=== PATIENT | female | born 1995 | race Caucasian/White ===

== ENCOUNTER 2023-12-27 19:28 | Emergency (ER) | payer SELFPAY ==
[2023-12-27 19:34] VITALS: BP 152/86
[2023-12-27 20:48] VITALS: BMI 25.8
--- NOTE | 2023-12-27 20:48 | ED.SKININJ ---
HPI-Injury
General
Chief Complaint: Blood and Body Fluid Exposure
Source: patient
Exam Limitations: none
Time Seen by Provider: 12/27/23 20:41
History of Present Illness-Injury
Initial Injury comments:
28-year-old female presents with needlestick to the left index finger sustained today. 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 She immediately expressed blood out of
her finger. She then washed it with soapy water. She has no complaints offered.
Phy Exam
Physical Exam
Physical Exam:
General: Well-appearing female no acute respiratory distress
HEENT: Normocephalic atraumatic
Neurologic: Alert conversing appropriately
Course
Orders/Labs/Results
Orders:
Orders
12/27/23 20:47
Pt has had a significant HIV exposure? Routine
HIV Exposure is significant?: Yes
HIV Combo Urgent
Hepatitis B Surface Antibody Urgent
Hepatitis B Surface Antigen Urgent
Hepatitis C Antibody Urgent
Vital Signs
Initial and Last Documented VS:
Initial Vital Signs
Temp Pulse Resp BP Pulse Ox
98.1 F 63 20 152/86 100
12/27/23 19:34 12/27/23 19:34 12/27/23 19:34 12/27/23 19:34 12/27/23 19:34
Last Documented Vital Signs
Temp Pulse Resp BP Pulse Ox
98.1 F 63 20 152/86 100
12/27/23 19:34 12/27/23 19:34 12/27/23 19:34 12/27/23 19:34 12/27/23 19:34
MDM/Problems Addressed
Differential Diagnosis Includes:
Needlestick injury. This is a low risk with small gauge needle. Exposure profile ordered include HIV and hepatitis testing. Discussed role and option for postexposure prophylaxis. After discussing risk and benefits. Patient decided to hold off
on any postexposure prophylaxis which is very reasonable. She was advised to follow-up with her work-related healthcare further rec patient
*Critical Care Note
Total Time (30-74mins, 75-104mins- exclusive of procedures): Not Applicable
ED Attending Note
-
Portions of this chart may have been created with voice recognition software.� Occasional wrong word or��sound alike� substitutions may have occurred due to the inherent limitations of voice recognition software.
Discharge Plan
Departure
Patient Disposition: Home (Routine Discharge)
Date of Disposition: 12/27/23
Time of Disposition: 20:49
Patient with high blood pressure during this ER visit?: No
Discharge Problem:
Needle stick injury of finger
Referrals:
Deisy Rojas CRNP [Family Provider] -
Stand Alone Forms: Bl/Fluid Consent/Declination, Blood Body/Fluid Exposure
Activity Restrictions/Additional Instructions:
Please follow-up with your work-related physician for further evaluation
Interventions
Interventions:
*Risk Screen - Suicide Last Done: 12/27/23 19:34
*General Assessment Last Done: 12/27/23 19:34
*Neglect/Abuse Screening Last Done: 12/27/23 19:34
ED- Fall Risk Assessment Last Done: 12/27/23 19:34
*ED COVID-19 Vaccine History Last Done: 12/27/23 19:34
Discharge Date and Time
Print Language: NEPALI
[2023-12-27 21:11] LABS: % Basophils 0.7 % (0-2); % Eosinophils 2.1 % (0-6); % Immature Granulocytes 0.1 % (0-0.5); % Monocytes 6.6 % (1.7-9.3); % Neutrophils 54.5 % (42.2-75.2); Absolute Basophils 0.1 10^3/uL (0-0.2); Absolute Eosinophils 0.2 10^3/uL (0-0.7); Absolute Lymphocytes 3.3 10^3/uL (1.2-3.4); Absolute Monocytes 0.6 10^3/uL (0.1-0.6); Absolute Neutrophils 4.9 10^3/uL (1.4-6.5); Hematocrit 40.8 % (37.0-47.0); Hemoglobin 14.8 g/dL (12.0-16.0); Mean Corp Hgb Conc. 36.3 g/dL (33.0-37.0); Mean Corpuscular Hgb 30.8 pg (27.0-31.0); Mean Corpuscular Volume 84.8 fL (81.0-99.0); Mean Platelet Volume 9.7 fL (7.4-10.4); Nucleated Red Blood Cells % 0 %; Platelet Count 258 10^3/uL (130-400); Red Blood Cell Count 4.81 10^6/uL (4.20-5.40)
[2023-12-27 22:08] LABS: Hepatitis B Surface Antigen Negative (Negative)
[2023-12-27 22:16] LABS: HIV Combo Negative (Negative)
[2023-12-27 22:25] LABS: Hepatitis B Surface Antibody Negative; Hepatitis C Antibody Negative (Negative)
== END 2023-12-27 21:12 | disposition home or self-care (01) ==
LOC: EMR 19:28
PROVIDERS: Physician Assistant; EMERGENCY PHYSICIAN Emergency Medicine; FAMILY PHYSICIAN Nurse Practitioner Family
DX: S61.231A Puncture wound without foreign body of left index finger without damage to nail, initial encounter (principal); W46.0XXA Contact with hypodermic needle, initial encounter; Y99.0 Civilian activity done for income or pay; Z77.21 Contact with and (suspected) exposure to potentially hazardous body fluids
CPT/HCPCS: 99283; 85025; 86706; 86803; 87340; 87389